=== PATIENT | male | born 1970 | race Two or more races ===

== ENCOUNTER 2019-02-25 00:55 | Emergency (ER) | payer OTHER ==
[~2019-02-25] VITALS: Ht 167.6 cm; Wt 70.3 kg
[2019-02-25] MEDS ORDERED: IV NS 0.9% 1,000 ML BAG IV ONE (02:00)
--- NOTE | 2019-02-25 02:00 | NUR ---
PT [facility], STATES "FEELS LIKE I'M ABOUT TO HAVE A SEIZURE". HX SEIZURE AND ALCOHOL ABUSE. PT AAOX4. RESPIRATIONS EVEN AND UNLABORED. SKIN INTACT. NO ACUTE DISTRESS NOTED AT THIS TIME. WILL CONTINUE TO MONITOR
[2019-02-25] MEDS ORDERED: CHLORDIAZEPOXIDE HCL 25 MG CAPSULE ONE (02:10)
[2019-02-25 02:23] LABS: CALCIUM, SERUM 8.6 mg/dL (8.5-10.1); CREATININE 0.6 mg/dL (0.6-1.3); POTASSIUM 3.8 mmol/L (3.5-5.1)
[2019-02-25 02:24] LABS: BASOPHILS % (AUTO) 1.1 % (0.0-2.0); EOSINOPHILS % (AUTO) 5.8 % (0.0-6.0); HEMATOCRIT 34 % (39-51); HEMOGLOBIN 11.4 g/dL (13.5-17.5); LYMPHOCYTES # (AUTO) 0.6 /CMM (0.8-4.8); LYMPHOCYTES % (AUTO) 18.2 % (20.0-44.0); MEAN CORPUSCULAR HGB CONC 33 g/dl (31.0-36.0); MEAN CORPUSCULAR VOLUME 94 fL (80-96); MONOCYTES # (AUTO) 0.3 /CMM (0.1-1.30); MONOCYTES % (AUTO) 8.8 % (2.0-12.0); NEUTROPHILS # (AUTO) 2.2 /CMM (1.8-8.9); NEUTROPHILS % (AUTO) 66.1 % (43.0-81.0); PLATELET COUNT (AUTO) 187 /CMM (150-450); RED BLOOD CELL COUNT(AUTO) 3.65 MIL/uL (4.5-6.0); WHITE BLOOD COUNT (AUTO) 3.3 K/uL (4.3-11.0)
[2019-02-25 02:26] LABS: PHENYTOIN (DILANTIN) 2.9 ug/ml (10.0-20.0)
[2019-02-25] MEDS ORDERED: CHLORDIAZEPOXIDE HCL 25 MG CAPSULE PO ONE (02:30)
[2019-02-25] MEDS ORDERED: NS 0.9% IV ONE (03:30)
[2019-02-25] MEDS ORDERED: FOSPHENYTOIN SODIUM PE IV ONE (03:30)
[2019-02-25] MEDS ORDERED: PHENYTOIN EXTENDED RELEASE 100 MG CAPSULE PO ONE ×2 (03:49→04:00)
--- NOTE | 2019-02-25 03:50 | NUR ---
PT JEN, UNABLE TO ESTABLISH IV LINE. AWARE.
--- NOTE | 2019-02-25 04:26 | NUR ---
PT MEDICALLY CLEARED FOR BOOKING. IN CUSTODY WITH [employer]. ABLE TO AMBULATE WITH STEADY GAIT. NO ACUTE DISTRESS NOTED UPON DISCHARGE
[2019-02-25 04:32] VITALS: BP 118/79
== END 2019-02-25 04:34 ==
LOC: ER 01:04
DX: F10.239 Alcohol dependence with withdrawal, unspecified (principal); L03.116 Cellulitis of left lower limb; L03.115 Cellulitis of right lower limb; D64.9 Anemia, unspecified; D72.819 Decreased white blood cell count, unspecified; R89.2 Abnormal level of other drugs, medicaments and biological substances in specimens from other organs, systems and tissues; E86.0 Dehydration; F17.200 Nicotine dependence, unspecified, uncomplicated; Z98.890 Other specified postprocedural states; Y90.9 Presence of alcohol in blood, level not specified
CPT/HCPCS: 36415; 80048; 80185; 80307; 85025; 96360; 99283; A4216; J7030; G0480